=== PATIENT | male | born 1940 | race Caucasian/White ===

== ENCOUNTER 2021-11-28 08:01 | Outpatient (RCR) | payer MEDICARE, MEDICAID, SELFPAY ==
--- NOTE | ~2021-11-28 | XR_ITS ---
EXAMINATION: XR FOOT, RIGHT CLINICAL INFORMATION: Nonhealing wound. Rule out osteomyelitis. COMPARISON: None TECHNIQUE: AP, lateral, and oblique views of the right foot. FINDINGS: Bones of the midfoot are well aligned. No tarsal, metatarsal or phalangeal fracture. Mild degenerative changes of the first MTP joint. Small plantar calcaneal enthesophyte. No focal soft tissue swelling of the foot. No radiopaque foreign body. Vascular calcifications noted. No gross ankle joint effusion. 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
[2022-01-10 12:08] LABS: MANUAL DIFF FLAG NO
[2022-01-10 13:10] LABS: Basophils Percent Auto 0.5 % (0-2); Eosinophils Absolute Auto 0.3 X10*3/uL (0.0-0.4); Eosinophils Percent Auto 3.4 % (0-4); Hematocrit 34.1 % (42.0-52.0); Hemoglobin 9.9 g/dl (14.0-18.0); Imm Gran Abs Auto 0.04 X10*3/uL (0.00-0.03); Imm Gran Pct Auto 0.5 % (0.0-0.4); Lymphocytes Absolute Auto 0.4 X10*3/uL (1.2-4.9); Lymphocytes Percent Auto 5.1 % (20-40); Mean Corpuscular Hemoglobin 26.9 pg (27.0-33.0); Mean Corpuscular Volume 92.7 fL (80.0-98.0); Mean Platelet Volume 11.2 fL (9.4-12.4); Monocytes Absolute Auto 0.7 X10*3/uL (0.1-1.2); Neutrophils Absolute Auto 6.4 x10*3/uL (2.0-8.3); Neutrophils Percent Auto 81.5 % (45-73); Platelet Count 177 X10*3/uL (160-400); Red Blood Count 3.68 X10*6/uL (4.60-5.80); Red Cell Distribution Width 17.1 % (11.0-16.0); White Blood Count 7.9 X10*3/uL (4.8-10.8)
[2022-01-10 13:51] LABS: Erythrocyte Sedimentation Rate 17 MM/HR (0-15)
[2022-01-10 13:56] LABS: Anion Gap 10 (12-20); Blood Urea Nitrogen 28 mg/dL (9-16); C Reactive Protein 1.15 mg/dL (< or = 0.50); Calcium 9.9 mg/dL (8.4-10.2); Carbon Dioxide 35 mmol/L (22-29); Chloride 95 mmol/L (96-108); Estimated Glomerular Filt Rate 57; Glucose Random 138 mg/dL (60-115); Potassium 3.8 mmol/L (3.3-5.1); Sodium 136 mmol/L (135-145)
[2022-01-10 14:26] LABS: Estimated Average Glucose 169 mg/dL; Hemoglobin A1c % 7.5 %
== END 2022-03-07 15:00 | disposition home or self-care (01) ==
LOC: HO.WCC 08:01
PROVIDERS: PCP Internal Medicine; Visit Provider Surgery
DX: E11.621 Type 2 diabetes mellitus with foot ulcer (principal); L89.610 Pressure ulcer of right heel, unstageable; S91.311D Laceration without foreign body, right foot, subsequent encounter; S90.414D Abrasion, right lesser toe(s), subsequent encounter; I70.234 Atherosclerosis of native arteries of right leg with ulceration of heel and midfoot; E11.51 Type 2 diabetes mellitus with diabetic peripheral angiopathy without gangrene; E11.40 Type 2 diabetes mellitus with diabetic neuropathy, unspecified; E11.22 Type 2 diabetes mellitus with diabetic chronic kidney disease; I13.0 Hypertensive heart and chronic kidney disease with heart failure and stage 1 through stage 4 chronic kidney disease, or unspecified chronic kidney disease; N18.30 Chronic kidney disease, stage 3 unspecified; I50.9 Heart failure, unspecified; R60.9 Edema, unspecified; F03.90 Unspecified dementia, unspecified severity, without behavioral disturbance, psychotic disturbance, mood disturbance, and anxiety; I48.19 Other persistent atrial fibrillation; Z87.891 Personal history of nicotine dependence; Z95.2 Presence of prosthetic heart valve
CPT/HCPCS: 11042; 11045; 36415; 73620; 80048; 83036; 84134; 85025; 85652; 86140; 97597; 97598; 97602; 99213

== ENCOUNTER 2022-03-19 12:37 | Outpatient (REF) | payer MEDICARE, MEDICAID, SELFPAY ==
--- NOTE | ~2022-03-19 | US_ITS ---
EXAMINATION: US DOPPLER LOWER EXTREMITY ARTERIAL, RIGHT CLINICAL INFORMATION: Atherosclerosis COMPARISON: None TECHNIQUE: Doppler arterial ultrasound was performed using grayscale, color Doppler, spectral Doppler analysis. Exam limited due to restless leg syndrome and the patient's inability to stand. FINDINGS: RIGHT: Common femoral: PSV 115 centimeters per second. Triphasic waveform. Deep femoral: Poorly visualized. Possibly severely stenotic with PSV 28.4 centimeters per second. Monophasic waveform. Proximal superficial femoral: PSV 90 centimeters per second. Triphasic waveform. Mid superficial femoral: PSV 79 centimeters per second. Biphasic waveform. Distal superficial femoral: PSV 112 centimeters per second. Monophasic waveform. Popliteal: PSV 75 centimeters per second. Monophasic waveform. Posterior tibial: PSV 42 centimeters per second. Monophasic waveform. US/US arterial duplex LE RT IMPRESSION: Atherosclerotic disease with likely hemodynamically significant disease in the deep femoral artery, distal superficial femoral artery, popliteal artery, and posterior tibial artery. Consider further evaluation with CTA or MRA runoff.
== END 2022-03-19 12:38 | disposition home or self-care (01) ==
LOC: HO.US 12:37
PROVIDERS: Visit Provider Physician Assistant
DX: I70.201 Unspecified atherosclerosis of native arteries of extremities, right leg (principal); L89.610 Pressure ulcer of right heel, unstageable
CPT/HCPCS: 93926